=== PATIENT | female | born 1940 | race Caucasian/White ===

== ENCOUNTER 2024-08-14 06:24 | Day surgery (SDC) | payer MEDICARE ==
[2024-08-14] VITALS (8 sets, daily range): BP systolic 91–125; BP diastolic 42–67; PULSE 69–82; RESP 16; TEMP 98.3; O2SAT 94–98
[~2024-08-14] VITALS: Ht 170.2 cm; Wt 90.8 kg
[2024-08-14] MEDS ORDERED: PROP20TA6 (06:44)
[2024-08-14] MEDS ORDERED: LISI5TAB22 (06:44)
[2024-08-14] MEDS ORDERED: PRAV10TA39 (06:45)
[2024-08-14] MEDS ORDERED: TRIA1TAB5 PO (06:45)
[2024-08-14] MEDS ORDERED: LEVO100T9 (06:45)
[2024-08-14] MEDS ORDERED: MELA5CAP PO (06:46)
[2024-08-14] MEDS ORDERED: CARV3.123 PO (06:46)
[2024-08-14 07:42] LABS: BASOPHILS % (AUTO) 0.8 % (0-1); EOSINOPHILS # (AUTO) 0.1 X10'3 (0-0.9); EOSINOPHILS % (AUTO) 1.8 % (0-6); HEMATOCRIT 39.5 % (35.0-45.0); HEMOGLOBIN 13.1 g/dl (12.0-16.0); LYMPHOCYTES # (AUTO) 1.3 X10'3 (1.1-4.8); LYMPHOCYTES % (AUTO) 20.7 % (21-51); MEAN CORPUSCULAR HEMOGLOBIN 29.6 PG (27.0-31.0); MEAN CORPUSCULAR VOLUME 89.8 FL (78-98); MEAN PLATELET VOLUME 8.1 FL (7.4-10.4); MONOCYTES # (AUTO) 0.6 X10'3 (0-0.9); MONOCYTES % (AUTO) 9.4 % (2-12); NEUTROPHILS # (AUTO) 4.3 X10'3 (1.8-7.7); NEUTROPHILS % (AUTO) 67.3 % (42-75); PLATELET COUNT 184 X10'3 (140-440); RED CELL DISTRIBUTION WIDTH 13.2 % (11.5-14.5); WHITE BLOOD COUNT 6.4 X10'3 (4.5-11.0)
[2024-08-14 07:47] LABS: ALBUMIN 3.9 G/DL (3.4-5.0); ANION GAP 10 (8-16); BLOOD UREA NITROGEN 16 MG/DL (7-18); BUN/CREATININE RATIO 20.3 (10.0-20.0); CALCIUM 9.2 MG/DL (8.5-10.1); CHLORIDE 102 MMOL/L (99-107); CREATININE 0.79 MG/DL (0.40-0.90); GLUCOSE 93 MG/DL (70-104); POTASSIUM 3.9 MMOL/L (3.5-5.1); SODIUM 139 MMOL/L (135-145); TOTAL CARBON DIOXIDE 26.7 MMOL/L (24-32); eCRCL 52 ML/MIN; eGFR 69 ML/MIN
[2024-08-14 07:49] LABS: PROTHROMBIN TIME 10.8 SECONDS (9.0-12.0)
[2024-08-14] MEDS: VANCOMYCIN 1,500MG inj. 1,500 MG in normal saline 500ml IV soln 300 ML IV ONE (07:50)
[2024-08-14] MEDS: normal saline 1000ml 1,000 ML IV SCH (07:50)
[2024-08-14] MEDS ORDERED: iohexol 350 MG/ML 50ML vial IV ONE ×2 (08:42→10:24)
[2024-08-14] MEDS ORDERED: fentaNYL/PF 50MCG/1 ML 2ML syringe ONE ×2 (08:42→10:52)
[2024-08-14] MEDS ORDERED: midazolam 1 mg/ML 2ml injection ONE ×4 (08:42→11:10)
[2024-08-14] MEDS ORDERED: vancomycin 1,000mg inj ONE (08:42)
[2024-08-14] MEDS ORDERED: LIDOcaine 1% W/epiNEPHrine 1:100,000 20ml vial ONE (09:12)
[2024-08-14] MEDS ORDERED: HYDROmorphone 1 mg/ml syringe ONE (09:56)
[2024-08-14] MEDS ORDERED: HYDROcodone/acetaminophen 10/325mg tab PO PRN (12:45)
[2024-08-14] MEDS ORDERED: HYDROcodone/acetaminophen 5mg/325mg tablet PO PRN (12:45)
== END 2024-08-14 14:25 | disposition home or self-care (01) ==
LOC: SSTAY O 06:24
PROVIDERS: ATTEND Internal Medicine Cardiovascular Disease
DX: I42.0 Dilated cardiomyopathy (principal); I44.7 Left bundle-branch block, unspecified; I11.0 Hypertensive heart disease with heart failure; I50.22 Chronic systolic (congestive) heart failure; Z79.899 Other long term (current) drug therapy; Z79.890 Hormone replacement therapy
CPT/HCPCS: 33249; 36415; 71045; 80048; 83735; 85025; 85610; 93005; 93641; A4565; A6258; C1769; C1882; C1895; C1898; C1900; J1171; J2250; J3010; J3370; J3490; J7030; J7040; Q9967; 99152; 99153